=== PATIENT | male | born 1965 | race Caucasian/White ===

== ENCOUNTER 2021-02-23 14:28 | Emergency (ER) | payer BC, SELFPAY ==
--- NOTE | ~2021-02-23 | CT_ITS ---
EXAMINATION: CT brain wo con, CT cervical spine wo con EXAM DATE: 02/23/2021 17:16 INDICATION: Fall, head injury. TECHNIQUE: Spiral CT of the head was performed without contrast. Axial, coronal and sagittal images were reviewed. Spiral CT of the cervical spine was performed without contrast. Axial images were rev iewed. Coronal and sagittal reformatted images were also reviewed. The dose-length product (DLP) fo r this examination was 681.00 (accession [id number]), 504.15 (accession [id number]) mGy-cm. The exposure was tailored according to patient size, and iterative reconstruction (ASIR) was used as additional dose reduction technique. There is no prior study for comparison. FINDINGS: HEAD CT: There is no acute intraparenchymal hemorrhage. No evidence of intraparenchymal brain mass l esion. No evidence of acute infarction. There is no mass effect or midline shift. There is no obstru ctive hydrocephalus suspected. There are no extra-axial collections. There are no acute calvarial f ractures. The orbits are unremarkable. Soft tissue is unremarkable. The visualized sinuses and mas toid air cells are well aerated. CERVICAL CT: There is no evidence of acute cervical fracture. The odontoid process is intact. Pre- dens space is normal. Prevertebral soft tissue is normal. There are no soft tissue abnormalities id entified. There is no disc space widening or traumatic vertebral body subluxation suspected. Overal l mild to moderate cervical spondylosis. A detailed level by level evaluation of spondylosis can be added as addendum if requested. IMPRESSION: 1. No acute intracranial findings or cervical fracture. Reviewed, dictated and finalized at location A. IMPRESSION: 1. No acute intracranial findings or cervical fracture.
--- NOTE | ~2021-02-23 | XR_ITS ---
EXAMINATION: XR humerus RT EXAM DATE: 02/23/2021 17:58 INDICATION: Right humeral fracture, fall. Initial encounter. TECHNIQUE: Orthogonal projections right humerus. Correlation is made to right elbow exam earlier maryan e date. FINDINGS: No shoulder dislocation. There is acute closed posttraumatic comminuted, angulated and dis placed fracture of the right humeral distal diaphysis. Approximately 40 degrees of angulation demonst rated. There is 1-2 cm retraction. There may also be some amount of rotation. Elbow joint is unremark able. IMPRESSION: 1. Acute comminuted right humeral distal diaphyseal fracture, angulation, displacement and retractio n. Reviewed, dictated and finalized at location A. IMPRESSION: 1. Acute comminuted right humeral distal diaphyseal fracture, angulation, disp lacement and retraction.
--- NOTE | ~2021-02-23 | XR_ITS ---
EXAMINATION: XR elbow RT min 3V EXAM DATE: 02/23/2021 16:30 INDICATION: Initial encounter following injury, with pain of the right elbow. TECHNIQUE: Frontal, lateral, transthoracic and oblique projections of the right elbow. There is no prior study for comparison. FINDINGS: Acute closed posttraumatic comminuted, posteriorly angulated and displaced fracture of the right humeral distal diaphysis. There may also be mild retraction, bayoneting. No evidence of acute elbow fracture. IMPRESSION: Acute comminuted right humeral distal metaphyseal fracture, displacement, angulation, re traction. Orthopedic consult. Reviewed, dictated and finalized at location A. IMPRESSION: Acute comminuted right humeral distal metaphyseal fracture, displa cement, angulation, retraction. Orthopedic consult.
--- NOTE | ~2021-02-23 | XR_ITS ---
EXAMINATION: XR knee LT 3V EXAM DATE: 02/23/2021 17:58 INDICATION: Initial encounter following injury, with pain of the left knee. TECHNIQUE: Three projections of the left knee. There is no prior study for comparison. FINDINGS: No evidence osteochondral defect or joint body in the left knee joint. Small to moderate -sized patellar enthesopathy superiorly and inferiorly. No knee joint effusion. Nonspecific nonaggres sive appearing periosteal reaction along the tibia and fibula. The joint spaces are uniform. 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 There are no acute fractures identified. No radiopaque foreign bodies identified. IMPRESSION: Chronic left knee findings. Reviewed, dictated and finalized at location A. IMPRESSION: Chronic left knee findings.
[2021-02-23 14:45] VITALS: BP 119/66; PULSE 92; RESP 18; TEMP 36.8; O2SAT 90
[2021-02-23 16:00] VITALS: BP 160/74; PULSE 98; RESP 18; O2SAT 99
[2021-02-23] MEDS: MORPHINE SULFATE (*CRX) 4 MG/ML INJ IV PUSH ×2 (16:54→20:09)
--- NOTE | 2021-02-23 17:02 | ED.GENADULT ---
HPI - General Adult General Chief complaint: Fall Stated complaint: fall - arm deformity Time Seen by Provider: 02/23/21 16:03 Source: patient History of Present Illness HPI narrative: Patient is a 56 y/o male complaining of severe right upper arm pain after a fall. He states that he tripped over a curb at a [employer] station. This occurred approximately 3 hours ago. He describes his pain as sharp and rates his pain as more than 10/10. Pain radiates to his right forearm and hand. Movement worsens the pain. He also has left knee scratch and broke his tooth. He may have had brief loss of consciousness when he fell. Related Data Allergies Allergy/AdvReac Type Severity Reaction Status Date / Time No Known Allergies Allergy Verified 02/23/21 14:58 Review of Systems Constitutional: Constitutional: Denies chills, Denies fever(s), Denies headache(s) and Denies weakness Eyes: Eyes: Denies blurry vision ENT: Denies headache(s) and Denies neck pain Cardiovascular: Cardiovascular: Denies chest pain and Denies dyspnea Respiratory: Respiratory: Denies cough and Denies dyspnea Gastrointestinal: Gastrointestinal: Denies abdominal pain, Denies diarrhea, Denies nausea and Denies vomiting Genitourinary: Genitourinary: Denies hematuria and Denies dysuria Musculoskeletal: Musculoskeletal: Denies back pain, Denies neck pain and Reports other (right arm pain, left knee pain) Integumentary/Breasts: Skin/Breast: Reports other (+abrasion) Neurologic: Denies headache(s) and Denies weakness Exam Const: General: no acute distress and well developed Orientation/consciousness: oriented to person, oriented to place, oriented to time and patient oriented x3 HENMT: Head: normocephalic Ears: external ears normal General nose exam: Normal external nose present Teeth and gingiva: other (some bleeding from left upper gum) Eyes: General: appearance normal, both eyes and all related structures Conjunctivae: conjunctivae normal Neck: Neck: normal visual inspection and full ROM Chest: Chest palpation & inspection: normal inspection of the chest and no tenderness Resp: Effort & Inspection: normal respiratory effort Auscultation: clear to auscultation bilaterally Cardio: Rate: regular rate Rhythm: regular rhythm GI: GI Palp: No abdominal tenderness and Yes Soft to palpation Skin: General skin exam: normal color and turgor normal Trauma: abrasion (left knee) Neuro: General: oriented to person, oriented to place, oriented to time and patient oriented x3 Cognition (Neuro): normal cognition Extrem: General: no pedal edema Right upper extremity: shoulder/upper arm (splint in place) tenderness Psych: Appearance: grossly normal Mental Status: mental status grossly normal Affect: normal affect Course Consultations Consultation #1: Discussed with Dr. Sebastian, who recommends transferring [facility]. Date: 02/23/21 Time: 17:21 Consultation #2: Discussed with Dr. Prather (EDP) at [facility], who agrees to accept the patient for transfer. Date: 02/23/21 Time: 18:08 Vital Signs Vital signs: Vital Signs Temperature 36.8 C 02/23/21 14:45 Pulse Rate 92 02/23/21 14:45 Respiratory Rate 18 02/23/21 14:45 Blood Pressure 119/66 02/23/21 14:45 Pulse Oximetry 90 02/23/21 14:45 Temperature 36.8 C 02/23/21 14:45 Pulse Rate 110 H 02/23/21 19:17 Respiratory Rate 12 02/23/21 19:17 Blood Pressure 131/70 02/23/21 19:17 Pulse Oximetry 96 02/23/21 19:17 Medical Decision Making Vital Signs Vital Signs: Vital Signs Temperature 36.8 C 02/23/21 14:45 Pulse Rate 92 02/23/21 14:45 Respiratory Rate 18 02/23/21 14:45 Blood Pressure 119/66 02/23/21 14:45 Pulse Oximetry 90 02/23/21 14:45 Temperature 36.8 C 02/23/21 14:45 Pulse Rate 110 H 02/23/21 19:17 Respiratory Rate 12 02/23/21 19:17 Blood Pressure 131/70 02/23/21 19:17 Pulse Oximetry 96 02/23/21 19:17 Discharge Plan Discharge Clinical Impression:
--- NOTE | 2021-02-23 17:09 | PC.NURSE ---
Pt taken to CT scan
[2021-02-23] MEDS: KETAMINE HCL (*CRX) 500 MG/10 ML VIAL 100 MG IV PUSH (17:17)
[2021-02-23] MEDS: TETANUS,DIPHTHERIA,AC PERTUSSIS ADULT (0.5 ML) BOOSTRIX IM (17:21)
--- NOTE | 2021-02-23 17:25 | PC.NURSE ---
Pt was given ketamine. During this time pts O2 went to 84%. Pt was placed on 2L O2 then went to 100%. Dr. Álvarez made aware
[2021-02-23 17:39] VITALS: BP 170/78; PULSE 114; RESP 16; O2SAT 98
[2021-02-23 18:12] VITALS: BP 128/67; PULSE 108; RESP 15; O2SAT 98
[2021-02-23] MEDS: KETAMINE HCL (*CRX) 500 MG/10 ML VIAL 50 MG IV PUSH (18:50)
--- NOTE | 2021-02-23 19:13 | PC.NURSE ---
made contact with [facility] to transfer pt to [facility]. [facility] accepted with an eta of 2030
[2021-02-23 19:17] VITALS: BP 131/70; PULSE 110; RESP 12; O2SAT 96
--- NOTE | 2021-02-23 19:25 | PC.NURSE ---
Report received from [facility]. Awaiting EMS for transfer to [place]. Pt reports is beginning to have pain again. Right arm in splint. Cap refill brisk.
--- NOTE | 2021-02-23 20:31 | PC.NURSE ---
Report to [facility], here for transport to [place].
== END 2021-02-23 20:37 | disposition short-term general hospital (02) ==
PROVIDERS: Emergency Provider Emergency Medicine; PCP Neurological Surgery
DX: S42.341A Displaced spiral fracture of shaft of humerus, right arm, initial encounter for closed fracture (principal); S80.212A Abrasion, left knee, initial encounter; Z23 Encounter for immunization; W01.0XXA Fall on same level from slipping, tripping and stumbling without subsequent striking against object, initial encounter; Y92.524 Gas station as the place of occurrence of the external cause
CPT/HCPCS: 70450; 72125; 73060; 73080; 73562; 90471; 90715; 96374; 96375; 96376; 99285; A4565; J2270